=== PATIENT | female | born 1995 | race Caucasian/White ===

== ENCOUNTER 2018-09-17 08:00 | Day surgery (SDC) | payer OTHER ==
[~2018-09-17 08:00] MED LIST: CEFAZOLIN 2 GM/50 ML (PMX) 50 ML IVPB; SEVOFLURANE 15 MIN; SOD CHLORIDE 0.9% 1,000 ML IV
[2018-09-17] MEDS ORDERED: SUCCINYLCHOLINE CHLORIDE 100 MG/5 ML SYG IV (09:47)
[2018-09-17] MEDS ORDERED: PROPOFOL 20 ML (09:47)
[2018-09-17] MEDS ORDERED: NEOSTIGMINE 3 MG/3 ML SYRINGE (09:47)
[2018-09-17] MEDS ORDERED: ROCURONIUM 50 MG INJ (09:47)
[2018-09-17] MEDS ORDERED: GLYCOPYRROLATE 0.4 MG INJ (09:47)
[2018-09-17] MEDS ORDERED: MEPERIDINE 100 MG INJ (09:47)
[2018-09-17] MEDS ORDERED: LIDOCAINE 2% (SDV) 5 ML INJ (09:47)
[2018-09-17] MEDS ORDERED: METOCLOPRAMIDE 10 MG INJ (10:22)
[2018-09-17] MEDS ORDERED: ONDANSETRON 4 MG INJ (10:22)
[2018-09-17] MEDS: BUPIVACAINE 0.25% (MPF) 30 ML INJ (10:29)
[2018-09-17] MEDS ORDERED: EPHEDrine SULFATE 50 MG/5 ML SYG IV (10:30)
[2018-09-17] MEDS ORDERED: hydrALAzine 20 MG INJ IV (10:30)
[2018-09-17] MEDS ORDERED: METOCLOPRAMIDE 10 MG INJ IV (10:30)
[2018-09-17] MEDS ORDERED: LABETALOL HCL 20MG INJ IV (10:30)
[2018-09-17] MEDS ORDERED: MIDAZOLAM 1 MG/ML 2 ML INJ IV (10:30)
[2018-09-17] MEDS ORDERED: HYDROmorphONE 1 MG/5 ML IV SYRINGE IV (10:30)
[2018-09-17] MEDS ORDERED: FENTAnyl 50 MCG/ML VIAL IV ×3 (10:30)
[2018-09-17] MEDS ORDERED: OXYCODONE/ACETAMINOPHEN (5/325) TAB PO ×2 (10:30)
[2018-09-17] MEDS ORDERED: DIPHENHYDRAMINE 50 MG INJ IV (10:30)
[2018-09-17] MEDS: MEPERIDINE 25 MG INJ IV (10:50)
[2018-09-17] MEDS: HYDROmorphONE 1 MG/5 ML IV SYRINGE IV ×2 (10:50→11:07)
[2018-09-17] MEDS: ONDANSETRON 4 MG INJ IV (10:50)
[2018-09-17] MEDS ORDERED: CEFAZOLIN 1 GM INJ (11:35)
[2018-09-17] MEDS: HYDROCODONE/APAP (5/325) TAB PO (12:13)
== END 2018-09-17 12:55 | disposition home or self-care (01) ==
LOC: SDS 08:00
DX: K80.10 Calculus of gallbladder with chronic cholecystitis without obstruction (principal); J45.909 Unspecified asthma, uncomplicated
CPT/HCPCS: 47562; 88304